=== PATIENT | male | born 1960 | race Caucasian/White ===

== ENCOUNTER 2021-10-11 12:00 | Outpatient (CLI) | payer OTHER, SELFPAY | END 2021-10-11 12:01 | disposition home or self-care (01) | LOC: SLEEP 10-12 12:05 | PROVIDERS: Family Provider Family Medicine; PCP Family Medicine; Visit Provider Electrodiagnostic Medicine | DX: G47.30 Sleep apnea, unspecified (principal); F41.9 Anxiety disorder, unspecified | CPT/HCPCS: G0399 ==

== ENCOUNTER 2023-02-15 11:03 | Outpatient (CLI) | payer OTHER, SELFPAY ==
--- NOTE | 2023-02-15 11:16 | CT_ITS ---
WS: [id number] LDCT LUNG CANCER SCREENING HISTORY: HX OF TOBACCO USE TECHNIQUE: Axial imaging performed from the apices to 1 cm below the costophrenic angles. Coronal and sagittal reformats are submitted with axial MIP series. All CT scans at [facility] use at least one of these dose optimization techniques: automated exposure control; mA and/or kV adjustment per patient size (includes targeted exams where dose is matched to clinical indication); or iterativ e reconstruction. DLP: 127.10 mGy.cm DIvol: Mean CTDIvol: 2.50 (mGy) COMPARISON: None available. Diagnostic quality: Satisfactory Lungs: 3 mm pleural-based nodule RIGHT upper lobe, image 136 of series 4. No pneumonia or mass. No en dobronchial lesions. Heart: Normal size heart with no pericardial effusion.. Extensive coronary artery calcifications. Other findings: Mild atherosclerosis aorta. Small hiatal hernia. Hepatic steatosis. No adrenal mass. Mild fatty replacement of the pancreas. Thoracic spondylosis. CT/CT lung screening [id number] IMPRESSION: LUNG-RADS: 2-Benign Appearance or Behavior FOLLOW UP: 12 Month: Continue annual screening with LDCT OTHER FINDINGS (S MODIFIER): None.
== END 2023-02-15 11:04 | disposition home or self-care (01) ==
PROVIDERS: PCP Family Medicine; Visit Provider Family Medicine
DX: Z12.2 Encounter for screening for malignant neoplasm of respiratory organs (principal); Z87.891 Personal history of nicotine dependence
CPT/HCPCS: 71271

== ENCOUNTER 2024-01-21 07:41 | Outpatient (CLI) | payer MEDICARE, OTHER, SELFPAY ==
--- NOTE | 2024-01-21 07:49 | CTR_ITS ---
PROCEDURE INFORMATION: Exam: CT Temporal Bones Without Contrast. Exam date and time: 01/21/2024 8:06 AM Age: 63 years old Clinical indication: Patient HX: Labyrinthitis, hearing loss in left ear more than right; Additional info: Labyrinthitis, unspecified ear TECHNIQUE: Imaging protocol: Computed tomography of the temporal bones without contrast. Radiation optimization: All CT scans at this facility use at least one of these dose optimization techniques: automated exposure control; mA and/or kV adjustment per patient size (includes targeted exams where dose is matched to clinical indication); or iterative reconstruction. COMPARISON: No relevant prior studies available. RADIATION DOSE METRICS: Total DLP (mGy-cm): 387.39 FINDINGS: Right inner ear: The right inner ear structures are unremarkable. Specifically, the internal auditory canals are symmetric and unremarkable. The mary falciformis appears normal. The cochlea and vestibular system are clearly visualized and appear unremarkable. There appears to be normal development of the cochlea and the modiolus appears normal as visualized. The vestibule are semicircular canals are of normal size and configuration. There is no evidence of labyrinthitis ossificans or otospongiosis /otosclerosis. The vestibular aqueduct is unremarkable without enlargement or flaring. The cochlear aqueduct is identified. Right ossicles and middle ear: The right middle ear structures are unremarkable. Specifically, the middle ear cavity is well developed and aerated and the ossicles are clearly identified. The oval windows and round windows are patent. Right external auditory canal: The right external auditory canal is well developed. The external ear is clear. The scutum and tympanic membrane are identified and are unremarkable. Right facial nerve canal: The facial nerve is visualized without any abnormality seen. There is bone covering over the tympanic segment as visualized. Right jugular foramen: No jugular dehiscence. Right carotid canal: No aberrant carotid canal. Mild calcification. Right mastoid air cells: Right mastoid air cells are well developed. The mastoid air cells are well aerated. Left inner ear: The left inner ear structures are unremarkable. Specifically, the internal auditory canals are symmetric and unremarkable. The mary falciformis appears normal. The cochlea and vestibular system are clearly visualized and appear unremarkable. There appears to be normal development of the cochlea and the modiolus appears normal as visualized. The vestibule are semicircular canals are of normal size and configuration. There is no evidence of labyrinthitis ossificans or otospongiosis /otosclerosis. The vestibular aqueduct is unremarkable without enlargement or flaring. The cochlear aqueduct is identified. Left ossicles and middle ear: The left middle ear structures are unremarkable. Specifically, the middle ear cavity is well developed and aerated and the ossicles are clearly identified. The oval windows and round windows are patent. Left external auditory canal: The left external auditory canal is well developed. The external ear is clear. The scutum and tympanic membrane are identified and are unremarkable. Left facial nerve canal: The facial nerve is visualized without any abnormality seen. There is bone covering over the tympanic segment as visualized. Left jugular foramen: No jugular dehiscence. Left carotid canal: No aberrant carotid canal. Mild calcification. Left mastoid air cells: Left mastoid air cells are well developed. The mastoid air cells are well aerated. Paranasal sinuses: Small amount of mucosal thickening in paranasal sinuses. There are several maxillary dental caries. There periodontal lucencies adjacent to right maxillary 1st molar tooth left maxillary 2nd molar tooth. Soft tissues: Unremarkable. CT/CT temporal bone wo con* [id number] IMPRESSION: 1. No acute or significant findings of CT of the temporal bones. 2. Other non temporal bone findings as discussed.
== END 2024-01-21 07:42 | disposition home or self-care (01) ==
LOC: RAD 07:42
PROVIDERS: PCP Electrodiagnostic Medicine; Visit Provider Specialist
DX: H83.09 Labyrinthitis, unspecified ear (principal)
CPT/HCPCS: 70480